=== PATIENT | female | born 1950 | race Caucasian/White ===

== ENCOUNTER 2017-09-04 16:48 | Emergency (ER) | payer MEDICARE ==
[~2017-09-04 16:48] MED LIST: Sodium Chloride 0.9% 100 ML BAG ONE
[2017-09-04] MEDS ORDERED: methylPREDNISolone Sod Succ/PF 125 MG/2 ML VIAL ONE (18:05)
[2017-09-04] MEDS ORDERED: Dexamethasone 10 MG/ML VIAL ONE (18:05)
[2017-09-04] MEDS ORDERED: AMOXicillin 250 MG CAP ONE (18:05)
[2017-09-04] MEDS ORDERED: Magnesium Sulfate 2 GM/NS 0.9% 50 ML BAG ONE (18:05)
[2017-09-04 18:21] LABS: #Basophils 0.1 thou/uL (0.0-0.2); #Lymphocytes 1.3 thou/uL (1.20-3.40); #Monocytes 0.6 thou/uL (0.11-0.59); #Neutrophils 15.5 thou/uL (1.40-6.50); %Basophils 0.7 % (0.0-1.0); %Eosinophils 0.2 % (0.0-10.0); %Lymphocytes 7.6 % (21.0-51.0); %Monocytes 3.2 % (0.0-10.0); %Neutrophils 88.3 % (42.0-75.0); Hemoglobin 11.8 g/dL (12.0-16.0); Mean Corpuscular HGB CONC 32.1 g/dL (32.0-36.0); Mean Corpuscular Hemoglobin 27.3 pg (27.0-31.0); Mean Platelet Volume 6.6 fL (7.4-10.4); Platelet Count 476 thou/uL (130-400); RBC Distribution Width 15.1 % (11.5-14.5); Red Blood Cell (RBC) Count 4.32 mill/uL (4.20-5.40); White Blood Cell (WBC) Count 17.6 thou/uL (4.8-10.8)
[2017-09-04 18:23] LABS: INR-International Normal Ratio 1.1; PTT 24.8 SEC (22.9-36.1); Prothrombin Time 14.7 SEC (12.0-14.7)
[2017-09-04 18:24] LABS: Bilirubin Negative (Negative); Blood, Urine Negative (Negative); Clarity Clear (Clear); Glucose, Urine (Dipstick) Negative (Negative); Leukocyte Negative (Negative); Nitrite Negative (Negative); Protein, Urine (Dipstick) Negative (Neg-Trace); Specific Gravity, Urine 1.006 (1.002-1.036); Urobilinogen 0.2 mg/dL (0.2-1.0); pH, Urine 6.5 (5.0-9.0)
[2017-09-04 18:26] LABS: Bacteria/HPF Rare-Few HPF (None Seen); RBC/HPF 0-3 HPF (0-3); Squamous Epithelial 0-3 HPF (0-3); WBC/HPF None Seen HPF (0-3)
[2017-09-04 18:35] LABS: ALT (SGPT) 23 U/L (8-55); AST (SGOT) 23 U/L (5-34); Albumin 3.5 g/dL (3.4-4.8); Alkaline Phosphatase 129 U/L (40-150); Anion Gap 17 mmol/L (10-20); BUN (Urea Nitrogen) 14 mg/dL (9.8-20.1); Bilirubin, Total 0.3 mg/dL (0.2-1.2); CK (CPK) 38 U/L (29-168); Calc. Creatinine Clearance 0 mL/min (70-130); Calcium 9.3 mg/dL (7.8-10.44); Carbon Dioxide 28 mmol/L (23-31); Chloride 99 mmol/L (98-107); Estimated GFR-MDRD Greater than 90; Globulin 3.3 g/dL (2.4-3.5); Glucose 177 mg/dL (80-115); Potassium 3.9 mmol/L (3.5-5.1); Protein, Total 6.8 g/dL (6.0-8.3); Sodium 140 mmol/L (136-145)
[2017-09-04 18:36] LABS: CKMB 2.9 ng/mL (0-6.6); Troponin I 0.013 ng/mL (< 0.028)
--- NOTE | 2017-09-04 20:27 | RAD ---
RADIOGRAPH CHEST 1 VIEW: Date: 09/04/17 Time: 6:01 p.m. HISTORY: 67-year-old female with dyspnea. COMPARISON: 12/26/10 FINDINGS: There is a new finding of a mild infiltrate partially silhouetting the right cardiac border. No cardi omegaly. No pneumothorax. No effacement of lateral costophrenic angles. IMPRESSION: Right middle lobe infiltrate: possible pneumonia. [facility] [] POS: [facility]
== END 2017-09-04 19:54 | disposition short-term general hospital (02) ==
LOC: MADERS 16:48
DX: J44.1 Chronic obstructive pulmonary disease with (acute) exacerbation (principal); M06.9 Rheumatoid arthritis, unspecified; F17.210 Nicotine dependence, cigarettes, uncomplicated; Z79.899 Other long term (current) drug therapy
CPT/HCPCS: 36415; 71045; 80053; 81001; 82553; 83605; 83880; 84484; 85025; 85610; 85730; 87040; 87081; 87086; 87430; 87804; 93005; 94760; 96365; 96375; J1100; J2930; J3475; J7050; J7620

== ENCOUNTER 2017-09-20 17:11 | Emergency (ER) | payer MEDICARE ==
[~2017-09-20 17:11] MED LIST changes: +Iopamidol 370 76% 100 ML VIAL ONE; +Sodium Chloride 0.9% 1,000 ML BAG ONE; -Sodium Chloride 0.9% 100 ML BAG ONE
[2017-09-20 17:52] LABS: #Basophils 0.1 thou/uL (0.0-0.2); #Eosinphils 0.1 thou/uL (0.0-0.7); #Lymphocytes 2.1 thou/uL (1.20-3.40); #Monocytes 0.9 thou/uL (0.11-0.59); #Neutrophils 10.5 thou/uL (1.40-6.50); %Basophils 0.7 % (0.0-1.0); %Eosinophils 0.6 % (0.0-10.0); %Lymphocytes 15.6 % (21.0-51.0); %Monocytes 6.3 % (0.0-10.0); %Neutrophils 76.8 % (42.0-75.0); Hemoglobin 11.1 g/dL (12.0-16.0); Mean Corpuscular HGB CONC 33.8 g/dL (32.0-36.0); Mean Platelet Volume 5.9 fL (7.4-10.4); Platelet Count 339 thou/uL (130-400); RBC Distribution Width 16.8 % (11.5-14.5); Red Blood Cell (RBC) Count 3.95 mill/uL (4.20-5.40); White Blood Cell (WBC) Count 13.6 thou/uL (4.8-10.8)
[2017-09-20] MEDS ORDERED: Acetaminophen 500 MG TAB ONE (17:59)
[2017-09-20 18:09] LABS: ALT (SGPT) 12 U/L (8-55); AST (SGOT) 16 U/L (5-34); Albumin 3.6 g/dL (3.4-4.8); Alkaline Phosphatase 100 U/L (40-150); Anion Gap 15 mmol/L (10-20); BUN (Urea Nitrogen) 11 mg/dL (9.8-20.1); Bilirubin, Total 0.8 mg/dL (0.2-1.2); Calc. Creatinine Clearance 0 mL/min (70-130); Calcium 9.2 mg/dL (7.8-10.44); Carbon Dioxide 27 mmol/L (23-31); Chloride 100 mmol/L (98-107); Estimated GFR-MDRD Greater than 90; Globulin 2.9 g/dL (2.4-3.5); Glucose 158 mg/dL (80-115); Lipase 5 U/L (8-78); Potassium 4.1 mmol/L (3.5-5.1); Protein, Total 6.5 g/dL (6.0-8.3); Sodium 138 mmol/L (136-145)
[2017-09-20 18:18] LABS: Bilirubin Negative (Negative); Blood, Urine Negative (Negative); Glucose, Urine (Dipstick) Negative (Negative); Leukocyte Small (Negative); Nitrite Negative (Negative); Protein, Urine (Dipstick) Negative (Neg-Trace); Urobilinogen 0.2 mg/dL (0.2-1.0)
[2017-09-20 18:27] LABS: Clarity Hazy (Clear)
[2017-09-20 18:28] LABS: Bacteria/HPF Rare-Few HPF (None Seen); RBC/HPF 0-3 HPF (0-3)
--- NOTE | 2017-09-20 20:57 | CT ---
CT ABDOMEN AND PELVIS WITH IV CONTRAST: 09/20/17 HISTORY: Right upper quadrant abdominal pain. FINDINGS: There is incomplete visualization of a pleural based pulmonary nodule in the lateral aspect right low er lobe. The lung bases are otherwise clear. Vascular calcifications are seen in the abdominal aorta and iliac arteries. There is a subcentimeter too small to characterize hypodense lesion in the mid portion right kidney w ith a smaller peripheral low density area within the mid portion of the left kidney which may be rela flaco to focal area of scarring. There is also a subcentimeter too small to characterize hypodense lesi on superior pole left kidney. No hydronephrosis is present. The liver, spleen, pancreas, bilateral adrenal glands, and urinary bladder demonstrate a normal CT ap pearance. The uterus is not visualized likely related to hysterectomy. There is colonic diverticulosis with small to moderate amount of retained fecal material seen through out the colon. There is suggested thickening involving the sigmoid colon, however, this may be relate d to incomplete distention although diverticular disease is a possibility. However, no significant p ericolonic inflammatory changes are noted. There is no free fluid, fluid collection or lymphadenopathy seen in the abdomen or pelvis. Degenerative changes are noted in the spine, and there is left convexed scoliosis of the thoracolumba r spine. IMPRESSION: 1. Colonic diverticulosis. There is suggested thickening of the sigmoid colon, but this may be r elated to multiple colonic diverticula in this region as well as underdistention of the colon. There is no pericolonic inflammatory changes noted, although early diverticulitis cannot be entirely exclud ed. Clinical correlation is suggested. 2. Subcentimeter and incompletely characterized pleural based pulmonary nodule right lower lobe. 3. Vascular calcifications. 4. Hysterectomy. 5. Constipation. POS: [facility]
== END 2017-09-20 20:05 | disposition home or self-care (01) ==
LOC: MADERS 17:11
DX: R10.11 Right upper quadrant pain (principal); R10.13 Epigastric pain; J44.9 Chronic obstructive pulmonary disease, unspecified; F17.210 Nicotine dependence, cigarettes, uncomplicated; Z79.899 Other long term (current) drug therapy
CPT/HCPCS: 36415; 74177; 80053; 81003; 81015; 83690; 85025; 96360; J7050

== ENCOUNTER 2019-02-04 17:29 | Emergency (ER) | payer MEDICARE ==
--- NOTE | 2019-02-04 18:10 | RAD ---
Chest AP view INDICATION: Anemia COMPARISON: September 04, 2017 FINDINGS: Lungs:Stable chronic lung changes. No consolidation. Cardiac silhouette pulmonary vasculature:The cardiomediastinal silhouette appears within normal limit s. Pleural spaces:No pleural effusion or pneumothorax is demonstrated. Upper abdomen:No abnormality seen. Osseous structures: There is been interval development of a prominent impaction deformity involving t he humeral head on the right. Recommend correlation for interval remote right shoulder trauma. Thoracolumbar scoliosis and multilevel spondylosis appears similar. Additional findings:None. IMPRESSION: No acute cardiopulmonary abnormality. Suspected interval remote right shoulder trauma.
[2019-02-04 18:29] LABS: ALT (SGPT) Less than 7 U/L (8-55); AST (SGOT) 11 U/L (5-34); Albumin 4.1 g/dL (3.4-4.8); Alkaline Phosphatase 103 U/L (40-150); Anion Gap 17 mmol/L (10-20); BUN (Urea Nitrogen) 9 mg/dL (9.8-20.1); Bilirubin, Total 0.3 mg/dL (0.2-1.2); Calc. Creatinine Clearance 0 mL/min (70-130); Calcium 9.3 mg/dL (7.8-10.44); Carbon Dioxide 26 mmol/L (23-31); Chloride 100 mmol/L (98-107); Estimated GFR-MDRD 80; Globulin 3.1 g/dL (2.4-3.5); Glucose 143 mg/dL (80-115); Potassium 4.6 mmol/L (3.5-5.1); Protein, Total 7.2 g/dL (6.0-8.3); Sodium 138 mmol/L (136-145)
[2019-02-04 18:36] LABS: Hemoglobin 6.5 g/dL (12.0-16.0); Mean Corpuscular Hemoglobin 16.1 pg (27.0-31.0); Mean Corpuscular Volume 57.4 fL (78.0-98.0); Mean Platelet Volume 6.3 fL (7.4-10.4); Platelet Count 471 thou/uL (130-400); RBC Distribution Width 16.9 % (11.5-14.5); Red Blood Cell (RBC) Count 4.03 mill/uL (4.20-5.40); White Blood Cell (WBC) Count 14.6 thou/uL (4.8-10.8)
[2019-02-04 18:37] LABS: Anisocytosis SLIGHT = 6-15 cells (100X) (0-5/hpf); Hypochromia MARKED = >30 cells (100X) (0-5/hpf); Lymphocytes 11 % (21-51); MDiff Complete? YES; Microcytosis MODERATE=15-30 cells (100X) (0-5/hpf); Monocytes 3 % (0-10); Neutrophil 82 % (42-75); Platelet Morphology Comment Appears Increased; Polychromasia SLIGHT = 2-3 cells (100X) (0-2/hpf); Reactive Lymphocytes 4 % (0-10)
[2019-02-04 18:47] LABS: CKMB 1.2 ng/mL (0-6.6)
[2019-02-04] MEDS ORDERED: Sodium Chloride 0.9% 500 ML ONE (19:05)
== END 2019-02-04 19:47 | disposition short-term general hospital (02) ==
LOC: MADERS 17:29
DX: D50.9 Iron deficiency anemia, unspecified (principal); F17.210 Nicotine dependence, cigarettes, uncomplicated; M06.9 Rheumatoid arthritis, unspecified; J44.9 Chronic obstructive pulmonary disease, unspecified; Z79.891 Long term (current) use of opiate analgesic; Z79.899 Other long term (current) drug therapy
CPT/HCPCS: 36430; 71045; 80053; 82274; 82553; 83880; 84484; 85025; 86850; 86900; 86901; 86920; 93005; 94760; 99284; P9016; 36415; J7050

== ENCOUNTER 2019-02-14 06:55 | Emergency (ER) | payer MEDICARE ==
[2019-02-14] MEDS ORDERED: Norepinephrine 4 MG/4 ML VIAL ONE ×2 (07:16→08:36)
[2019-02-14] MEDS ORDERED: Sodium Chloride 0.9% 100 ML ONE (07:36)
[2019-02-14] MEDS ORDERED: cefTRIAXone\\ROCEPHIN 2 GM VIAL ONE (07:36)
[2019-02-14] MEDS ORDERED: Vancomycin HCl 500 MG VIAL ONE (07:36)
[2019-02-14] MEDS ORDERED: Sodium Chloride 0.9% 1,000 ML ONE (07:36)
[2019-02-14] MEDS ORDERED: Sodium Chloride 0.9% 250 ML 250 ML ONE (07:36)
[2019-02-14 07:48] LABS: ALT (SGPT) 33 U/L (8-55); AST (SGOT) 121 U/L (5-34); Albumin 2.5 g/dL (3.4-4.8); Alkaline Phosphatase 105 U/L (40-150); Anion Gap 14 mmol/L (10-20); BUN (Urea Nitrogen) 22 mg/dL (9.8-20.1); Bilirubin, Total 1.3 mg/dL (0.2-1.2); Calc. Creatinine Clearance 0 mL/min (70-130); Calcium 7.4 mg/dL (7.8-10.44); Carbon Dioxide 23 mmol/L (23-31); Chloride 106 mmol/L (98-107); Estimated GFR-MDRD 46; Globulin 1.8 g/dL (2.4-3.5); Glucose 91 mg/dL (80-115); Protein, Total 4.3 g/dL (6.0-8.3); Sodium 140 mmol/L (136-145)
[2019-02-14 07:53] LABS: Potassium 2.9 mmol/L (3.5-5.1)
[2019-02-14 08:02] LABS: Bilirubin Moderate (Negative); Blood, Urine Large (Negative); Glucose, Urine (Dipstick) 100 mg/dL (Negative); Leukocyte Negative (Negative); Nitrite Negative (Negative); Protein, Urine (Dipstick) > or equal to 300 mg/dL (Neg-Trace)
[2019-02-14 08:03] LABS: Clarity Hazy (Clear)
--- NOTE | 2019-02-14 08:20 | RAD ---
Exam: Chest one view: HISTORY: Fever COMPARISON: 02/04/2019 FINDINGS: Heart size is normal. Prominent increased linear interstitial markings noted throughout both lungs wi th slight blunting of the right costophrenic angle. This could represent some underlying chronic change or may represent some acute vascular congestion or diffuse interstitial edema or pneumonitis. These markings are slightly accentuated compared to the prior study. IMPRESSION: Increased linear interstitial markings bilaterally. These are slightly accentuated when compared to p rior study. No confluent lobar pneumonia. Probable small right pleural effusion.
[2019-02-14 08:23] LABS: Anisocytosis MODERATE=16-30 cells (100X) (0-5/hpf); Band 16 % (5-11); Giant Platelets SLIGHT; Hemoglobin 10.8 g/dL (12.0-16.0); Large Platelets SLIGHT; Lymphocytes 3 % (21-51); MDiff Complete? YES; Mean Corpuscular HGB CONC 29.6 g/dL (32.0-36.0); Mean Corpuscular Hemoglobin 21.6 pg (27.0-31.0); Mean Corpuscular Volume 73.1 fL (78.0-98.0); Monocytes 1 % (0-10); Neutrophil 80 % (42-75); Platelet Count 165 thou/uL (130-400); Platelet Morphology Comment Appears Adequate; RBC Distribution Width 26.1 % (11.5-14.5); White Blood Cell (WBC) Count 39.3 thou/uL (4.8-10.8)
[2019-02-14] MEDS ORDERED: Potassium Chloride 10 MEQ TAB ONE ×3 (08:26)
--- NOTE | 2019-02-14 08:29 | CT ---
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 Bilateral associated foraminal stenosis particularly at C5 and C6. Bilateral bullous changes in the apices and the small poorly circumscribed scar in the right apex. No acute fracture or dislocation. IMPRESSION: No acute fracture or facet dislocation. Multilevel cervical spondylosis. Bilateral bullous changes in the apices with a small right apical scar.
[2019-02-14 08:33] LABS: Bacteria/HPF Rare-Few HPF (None Seen); RBC/HPF 0-3 HPF (0-3); Squamous Epithelial 0-3 HPF (0-3); WBC/HPF None Seen HPF (0-3)
[2019-02-14 08:58] LABS: CKMB 45.1 ng/mL (0-6.6)
== END 2019-02-14 10:10 | disposition short-term general hospital (02) ==
LOC: MADERS 06:55
DX: A41.9 Sepsis, unspecified organism (principal); R65.21 Severe sepsis with septic shock; E87.6 Hypokalemia; M62.82 Rhabdomyolysis; J44.9 Chronic obstructive pulmonary disease, unspecified; F17.210 Nicotine dependence, cigarettes, uncomplicated; Z79.52 Long term (current) use of systemic steroids; Z79.899 Other long term (current) drug therapy
CPT/HCPCS: 36415; 36556; 51702; 71045; 72125; 80053; 81003; 81015; 82550; 82553; 83605; 83880; 84484; 85025; 86140; 86850; 86900; 86901; 87040; 87077; 87086; 87149; 87186; 93005; 96365; 96367; A4353; J0696; J3370; J3490; J7050; J7070